=== PATIENT | female | born 2000 | race Caucasian/White ===

== ENCOUNTER 2024-09-16 14:07 | Outpatient (CLI) | payer BC, SELFPAY ==
[2024-09-16 15:16] LABS: Beta HCG Quantitative < 2.39 mIU/ML
--- OUTSIDE RECORDS SUMMARY | 2024-09-16 15:35 | XMS_ITS | Encounter Summary ---
Author Organization [facility] Address [address] [place] [address] Phone Care Team Providers Care Donor Relations Associate Name Role Phone Provider, Outside Primary Care Provider Unavaila ble Reason for Referral * - Closed Specialty Diagnoses / Procedures Referred By Contac t Referred To Contact Diagnoses Close exposure to COVID-19 virus Procedures COVID-19 VIRUS PCR (2019 NOVEL CORONAVIRUS) Gerry Lee MD Phone: tel: fax: Referral ID Status Reason Start Date Expiration Date Visits Re quested Visits Authorized [id number] Closed 12/31/2019 12/30/2020 1 1 Encounter Details Date Type Department Care Team (Late st Contact Info) Description 12/31/2019 Orders Only [facility] [address] [place] [address] Gerry Lee MD [address] [place] [address] Close exposure to COVID-19 virus (Primary Dx) Social History Tobacco Use Types Packs/Day Years Used Date Smoking Tobacco: Never Assessed Comments Unknown Sex and Gender Information Value Date Recorded Sex Assigned at Not on file 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 The [place] FDA has made this test available under an emergency access mechanism called an Emergency Use Authorization (EUA). The EUA is supported by the [place] of Health and Human Service's (HHS's) declaration that circumstances exist to justify the emergency use of in vitro diagnostics (IVDs) for the detection and/or diagnosis of the virus that causes COVID-19. An IVD made available under an EUA has not undergone the same type of review as an FDA-approved or cleared IVD. FDA may issue an EUA when certain criteria are met, which includes that there are no adequate, approved, available alternatives, and based on the totality of scientific evidence available, it is reasonable to believe that this IVD may be effective in the detection of the virus that causes COVID-19. The EUA for this test is in effect for the duration of the COVID-19 declaration justifying emergency use of IVDs, unless terminated or revoked (after which the test may no longer be used). COVID-19 SOURCE Nasal Swab [facility] No [facility] FIRST TEST YES [facility] EMPLOYED IN HEALTHCARE NO [facility] SYMPTOMATIC DEFINED BY CDC NO [facility] HOSPITALIZED NO [facility] ICU NO [facility] IS NO [facility] Comment:[facility], [address] [place] [id number] SWAB OF INTERNAL NOSE / Unknown 12/31/2019 8:00 PM CDT 01/01/2020 8:08 PM CDT Narrative [facility] - 01/02/2020 2:01 PM CDT Called to this provider s office : () Tel: [phone]. [phone] CALL![phone] us Gerry Lee MD [id number] Final Result [facility] [address] [place] [address], documented in this encounter Visit Diagnoses Diagnosis Close exposure to COVID-19 virus- Primary Close exposure to COVID-19 virus documented in this encounter Care Teams Donor Relations Associate Relationship Specialty Start Date End Date Provider, Outside PCP - General 12/10/19 documented as of this encounter
--- OUTSIDE RECORDS SUMMARY | 2024-09-16 15:35 | XMS_ITS | Data Portability ---
Author Organization [facility] [employer], [facility] Address [address] [place] [address] Assessment Encounter Date Assessment Date Assessment LastModified by Organization Details LastModified Time 09/16/2024 09/16/2024 Limited physical exam d/t telehealth, pt speaking in full sentences, alert and oriented X 3. [email or web address] Not available 09/16/2024 16:28:32 Plan of Treatment Reminders Order Date Submit Date Provider Last Modified By Organization Details Last Modified Time Details Appointments Telehealt h 2024 03:15P M Emeli Frausto APN Not available Not available Not available Lab unlisted lab - outreach UA POC 2024 025 [facility], [address] [place] [address] [place], [address], 08/14/2024 10:21:55 CBC w/ diff 2024 025 [facility], [address] [place] [address] [place], [address], 08/14/2024 10:21:54 CMP, serum or plasma 2024 025 [facility] - [facility], [address] [place] [address] [place], [address], 08/14/2024 10:21:56 thyrotrop in, QN, serum or plasma 2024 025 [facility] - [facility], [address] [place] [address] [place], [address], 08/14/2024 10:21:54 magnesium , serum or plasma 2024 025 [facility], [address] [place] [address] [place], [address], 08/14/2024 10:21:56 phosphoru s, serum or plasma 2024 025 [facility] - [facility], [address] [place] [address] [place], [address], 08/14/2024 10:21:54 C reactive protein, QN, serum or plasma 2024 025 [facility], [address] [place] [address] [place], [address], 08/14/2024 10:21:55 cobalamin , QN, serum or plasma 2024 025 [facility], [address] [place] [address] [place], [address], 08/16/2024 18:58:26 THUY (antiucle ar antibodie s) IgG Ab, qual, IA, serum 2024 025 [facility], [address] [place] [address] [place], [address], 08/14/2024 11:44:36 pap, LB + reflex to HR HPV if ASC-U 2023 024 [facility], [address] [place] [address] [place], [address], 12/13/2023 10:13:36 cobalamin , QN, serum or plasma 2023 024 [facility], [address] [place] [address] [place], [address], 09/28/2023 16:51:49 vitamin D, 25-hydrox y, total, serum 2023 024 [facility], [address] [place] [address] [place], [address], 09/28/2023 16:51:49 CMP, serum or plasma 2023 024 [facility], [address] [place] [address] [place], [address], 09/28/2023 16:50:27 CBC w/ diff 2023 024 [facility], [address] [place] [address] [place], [address], 09/28/2023 16:50:26 lipid panel, serum 2023 024 [facility], [address] [place] [address] [place], [address], 09/28/2023 16:50:26 Referral otolaryng ologist referral 2022 023 [facility], [place] [place], [address], 12/08/2022 09:40:43 Procedures None recorded. Surgeries None recorded. Imaging None recorded. Medication Orders None recorded. Patient TargetsNo targets recorded. Patient InstructionsNo instructions recorded. 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 COMME NT: This Pap smear was scree zulema with the clarisa tance of the Holog ic ThinP rep(T M) Imagi ng Syste m and scree zulema by a cytot tee garcia t. SPECI MEN SOURC E: Pap (Refl ex to HPV DNA Genot yping 16,18 when ASC-U S), Cervi sindy CLINI SINDY INFOR MATLIBRADO N: LMP: N/A Cervi covag inal cytol ogy shoul d be consi dered a scree fernando proce dure subje ct to false negat gurjit and false posit gurjit. Resul ts are more relia ble when a satis facto ry sampl e is obtai zulema on a regul ar repet itive basis , and shoul d be inter prete d toget her with past and curre nt clini sindy data. ELECT EMILIANA Sanchez BY: Scree zulema By: Octaviano Terrell, CT (ASCP ) Case Elect rianaradha sanchez 12/12 Not Available Estella Pascal [facility] [address] [place], [address], 12/13/2023 10:13:36 12/07/19 24 12/07/2023 PAP THINP REP RFLX HPV {ASCU S}-GP BR source - Pap - gpbr CERVIC AL PERFO RMED BY: Estella Robertson [facility] r [address] [place] [address] Gold baptiste, . CLIA: [id number] Not Available Estella Pascal [facility] [address] [place], [address], 12/13/2023 10:13:36 08/15/1908/14/2024 OUTRE ACH UA POC UA color Yellow yellow Not Available Estella soliman [facility] - [facility] [address] [place], [address], 08/14/2024 11:44:36 08/15/19 25 08/14/2024 OUTRE ACH UA POC UA appear Clear clear Not Available [facility] Lab [address] [place] [address] [place], [address], 08/14/2024 11:44:36 08/15/19 25 08/14/2024 OUTRE ACH UA POC UA pH 7.5 5.0-8. 0 Not Available [facility] [address] [place] [address] [place], [address], 08/14/2024 11:44:36 08/15/19 25 08/14/2024 OUTRE ACH UA POC UA spec grav 1.020 1.005- 1.030 Not Available [facility] - Lab [address] [place] [address] [place], [address], 08/14/2024 11:44:36 08/15/19 25 08/14/2024 OUTRE ACH UA POC UA glucose Negati ve negati ve Not Available [facility] - Lab [address] [place] [address] [place], [address], 08/14/2024 11:44:36 08/15/19 25 08/14/2024 OUTRE ACH UA POC UA ketones Negati ve negati ve Not Available [facility] [address] [place] [address] [place], [address], 08/14/2024 11:44:36 08/15/19 25 08/14/2024 OUTRE ACH UA POC UA blood Negati ve negati ve Not Available [facility] [address] [place] [address] [place], [address], 08/14/2024 11:44:36 08/15/19 25 08/14/2024 OUTRE ACH UA POC UA protein Negati ve negati ve Not Available [facility] [address] [place] [address] [place], [address], 08/14/2024 11:44:36 08/15/19 25 08/14/2024 OUTRE ACH UA POC UA bili Negati ve negati ve Not Available [facility] [address] [place] [address] [place], [address], 08/14/2024 11:44:36 08/15/19 25 08/14/2024 OUTRE ACH UA POC UA urobilinogen 0.2 Not Available [facility] [address] [place] [address] [place], [address], 08/14/2024 11:44:36 08/15/19 25 08/14/2024 OUTRE ACH UA POC UA nitrite Negati ve negati ve Not Available [facility] [address] [place] [address] [place], [address], 08/14/2024 11:44:36 08/15/19 25 08/14/2024 OUTRE ACH UA POC UA leuk est Negati ve negati ve Not Available [facility] [address] [place] [address] [place], [address], 08/14/2024 11:44:36 08/15/19 25 08/14/2024 OUTRE ACH UA POC UA perform location poct TRINIT Y Not Available [address] [place], [address], 08/14/2024 11:44:36 08/15/19 25 08/14/2024 CBC WDIF WBC 4.5 K/mcL 4.0-11 .7 Not Available [facility] [address] [place] [address] [place], [address], 08/16/2024 18:58:26 08/15/19 25 08/14/2024 CBC WDIF RBC 4.33 x10*6 /mcL 3.80-5 .41 Not Available [address] [place], [address], 08/16/2024 18:58:26 08/15/19 25 08/14/2024 CBC WDIF HGB 12.6 g/dL 11.3-1 5.2 Not Available [facility] [address] [place] [address] [place], [address], 08/16/2024 18:58:26 08/15/19 25 08/14/2024 CBC WDIF HCT 37.6 % 33.2-4 5.3 Not Available [facility] [address] [place] [address] [place], [address], 08/16/2024 18:58:26 08/15/19 25 08/14/2024 CBC WDIF MCV 86.9 fL 79.5-9 8.1 Not Available [facility] [address] [place] [address] [place], [address], 08/16/2024 18:58:26 08/15/19 25 08/14/2024 CBC WDIF MCH 29.0 pg 27.0-3 4.2 Not Available [facility] [address] [place] [address] [place], [address], 08/16/2024 18:58:26 08/15/19 25 08/14/2024 CBC WDIF MCHC 33.4 g/dL 31.8-3 5.3 Not Available [facility] [address] [place] [address] [place], [address], 08/16/2024 18:58:26 08/15/19 25 08/14/2024 CBC WDIF RDW 12.6 % 12.0-1 6.4 Not Available [facility] [address] [place] [address] [place], [address], 08/16/2024 18:58:26 08/15/19 25 08/14/2024 CBC WDIF platelets 231 K/mcL 149-39 3 Not Available [facility] [address] [place] [address] [place], [address], 08/16/2024 18:58:26 08/15/19 25 08/14/2024 CBC WDIF MPV 8.6 fL 7.0-11 .0 Not Available [facility] [address] [place] [address] [place], [address], 08/16/2024 18:58:26 08/15/19 25 08/14/2024 CBC WDIF neutro auto 53.1 % 45.3-7 9.0 Not Available [facility] [address] [place] [address] [place], [address], 08/16/2024 18:58:26 08/15/19 25 08/14/2024 CBC WDIF lymph auto 34.8 % 11.8-4 5.9 Not Available [address] [place], [address], 08/16/2024 18:58:26 08/15/19 25 08/14/2024 CBC WDIF mono auto 7.0 % 4.4-12 .0 Not Available [address] [place], [address], 08/16/2024 18:58:26 08/15/19 25 08/14/2024 CBC WDIF eosinophil auto 4.2 % 0.0-6. 3 Not Available [address] [place], [address], 08/16/2024 18:58:26 08/15/19 25 08/14/2024 CBC WDIF basophil auto 0.9 % 0.2-1. 6 Not Available [address] [place], [address], 08/16/2024 18:58:26 08/15/19 25 08/14/2024 CBC WDIF neutro absolute 2.4 x10*3 /mcL 2.4-8. 4 Not Available [facility] [address] [facility] [place], [address], 08/16/2024 18:58:26 08/15/19 25 08/14/2024 CBC WDIF lymph absolute 1.6 x10*3 /mcL 0.8-3. 7 Not Available [facility] [address] [facility] [place], [address], 08/16/2024 18:58:26 08/15/19 25 08/14/2024 CBC WDIF mono absolute 0.3 x10*3 /mcL 0.3-1. 1 Not Available [facility] [address] [place] [address] [place], [address], 08/16/2024 18:58:26 08/15/19 25 08/14/2024 CBC WDIF eos absolute 0.2 x10*3 /mcL 0.0-0. 5 PERFO RMED BY: [facility] [address] [place] [address] Gold Florian r, DO . CLIA: [id number] Not Available [facility] [address] [place] [address] [place], [address], 08/16/2024 18:58:26 08/15/19 25 08/14/2024 CRP CRP <0.1 mg/dL 0.0-1. 0 PERFO RMED BY: [facility] [address] [place] [address] Gold Florian r, DO . CLIA: [id number] Not Available [facility] [address] [place] [address] [place], [address], 08/16/2024 18:58:27 08/15/19 25 08/14/2024 TSH TSH 0.71 mciu/ mL 0.45-5 .33 PERFO RMED BY: [facility] [address] [facility] [address] [place] [address] Gold Florian r, DO . CLIA: [id number] Not Available [facility] [address] [place] [address] [place], [address], 08/16/2024 18:58:27 08/15/19 25 08/14/2024 VITAM IN B12 vitamin B12 lvl 321 pg/mL 180-91 4 Vitam in B12 Inter preta tion: Emily l Range : 180-9 14 pg/mL Indet ermin ate: 140-1 80 pg/mL Defic ient: <140 pg/mL PERFO RMED BY: Estella peterson [facility] [address] [facility] [address] [place] [address] Gold Florian r, DO . CLIA: [id number] Not Available [facility] [address] [place] [address] [place], [address], 08/16/2024 18:58:28 08/15/19 25 08/14/2024 CMP glucose lvl 83 mg/dL 74-109 ADA risk strat ifica tion for diabe rehana <100 mg/dL = Emily l 100-1 25 mg/dL = Incre ased risk for futur e diabe rehana >=126 mg/dL = Diabe rehana, if on more than one testi ng occas ion Not Available [facility] [address] [place] [address] [place], [address], 08/16/2024 18:58:28 08/15/19 25 08/14/2024 CMP BUN 16 mg/dL 7-25 Not Available [facility] [address] [place] [address] [place], [address], 08/16/2024 18:58:28 08/15/19 25 08/14/2024 CMP creatinine lvl 0.88 mg/dL 0.60-1 .20 Not Available [facility] [address] [place] [address] [place], [address], 08/16/2024 18:58:28 08/15/19 25 08/14/2024 CMP eGFR CKD-epi >90 mL/mi n/1.7 3_m2 >=90 The CKD-E PI equat ion is valid ated in indiv idual s 18 years of age and older . It is less accur ate in patie nts with extre mes of muscl e mass, restr ictio n of dieta ry prote in, inges tion of creat ine, extra -aniya l metab olism of creat inine , or treat ment with medic ation s that affec t renal tubul ar creat inine secre tion. GFR Categ ories in Chron ic Kidne y Disea se (CKD) GFR GFR (mL/m in/1. 73 Categ ory: squar e meter s): Inter preta tion: G1 90 or great er Emily l or high* G2 60-89 Mild decre ase* G3a 45-59 Mild to moder ate decre ase G3b 30-44 Moder ate to sever e decre ase G4 15-29 Sever e decre ase G5 14 or less Kidabraham y failu re *In the absen ce of evide nce of kidne y damag e, neith er GFR categ ory G1 nor G2 fulfi ll the crite kimberly for CKD (Emily stern Int Suppl 2013; 3:1-1 50) Not Available [facility] [address] [place] [address] [place], [address], 08/16/2024 18:58:28 08/15/19 25 08/14/2024 CMP calcium lvl 9.2 mg/dL 8.6-10 .3 Not Available [facility] [address] [place] [address] [place], [address], 08/16/2024 18:58:28 08/15/19 25 08/14/2024 CMP sodium lvl 139 mmol/ L 136-14 5 Not Available [facility] [address] [place] [address] [place], [address], 08/16/2024 18:58:28 08/15/19 25 08/14/2024 CMP potassium lvl 4.3 mmol/ L 3.5-5. 1 Not Available [facility] [address] [place] [address] [place], [address], 08/16/2024 18:58:28 08/15/19 25 08/14/2024 CMP chloride lvl 107 mmol/ L 98-107 Not Available [facility] [address] [place] [address] [place], [address], 08/16/2024 18:58:28 08/15/19 25 08/14/2024 CMP CO2 27 mmol/ L 21-31 Not Available [facility] [address] [place] [address] [place], [address], 08/16/2024 18:58:28 08/15/19 25 08/14/2024 CMP anion gap 5.0 mmol/ L <=16.0 Not Available [facility] [address] [place] [address] [place], [address], 08/16/2024 18:58:28 08/15/19 25 08/14/2024 CMP alk phos 36 unit/ L 34-104 Not Available [facility] [address] [place] [address] [place], [address], 08/16/2024 18:58:28 08/15/19 25 08/14/2024 CMP bilirubin total 0.7 mg/dL 0.3-1. 0 Not Available [facility] [address] [place] [address] [place], [address], 08/16/2024 18:58:28 08/15/19 25 08/14/2024 CMP albumin lvl 4.5 g/dL 3.5-5. 2 Not Available [facility] [address] [place] [address] [place], [address], 08/16/2024 18:58:28 08/15/19 25 08/14/2024 CMP protein total 6.5 g/dL 6.4-8. 9 Not Available [facility] [address] [place] [address] [place], [address], 08/16/2024 18:58:28 08/15/19 25 08/14/2024 CMP albumin/glob ulin ratio 2.3 1.1-2. 5 Not Available [facility] [address] [place] [address] [place], [address], 08/16/2024 18:58:28 08/15/19 25 08/14/2024 CMP ALT 15 unit/ L 7-52 Not Available [facility] [address] [place] [address] [place], [address], 08/16/2024 18:58:28 08/15/19 25 08/14/2024 CMP AST 13 unit/ L 13-39 PERFO RMED BY: Estella Gwyn Robertson [facility] [address] [employer] [address] DO Maximino Gilmore CLIA: [id number] Not Available [facility] [address] [place] [address] [place], [address], 08/16/2024 18:58:28 08/15/19 25 08/14/2024 MG LVL magnesium lvl 1.9 mg/dL 1.6-2. 4 PERFO RMED BY: Estella Pascal [facility] [address] [place] [address] DO Maximino Gilmore CLIA: [id number] Not Available [facility] [address] [place] [address] [place], [address], 08/16/2024 18:58:29 08/15/19 25 08/14/2024 PHOS phosphorus lvl 2.6 mg/dL 2.5-5. 0 PERFO RMED BY: [facility] [address] [facility] [place] [address] Gold baptiste DO . CLIA: [id number] Not Available Estella Pascal [facility] [address] [place], [address], 08/16/2024 18:58:29 08/15/19 25 08/14/2024 THUY SCREE N W/REF L AB CASCA DE-AR UP THUY linda rflx See Below Chart Name Resul ts Units Flag Ref Range Anti- Nucle ar Ab (THUY) , IgG None Detec zaid None Detec zaid If suspi cion of conne ctive tissu e disea se is stron g and THUY EIA is negat zahraa, consi cirilo testi ng for THUY by IFA (3000 601). No antib odies to Anti- Nucle ar Antib odies (THUY) detec zaid. The Extra ctabl e Nucle ar Antig en Antib odies (SAFETY AND HEALTH MANAGER, Campbell , SSA 52, SSA 60, Scler oderm a, Hanna-1 and SSB) and Doubl e Stran ded DNA (dsDN A) Antib dillan, IgG will not be perfo rmed. INTER PRETI VE INFOR MATIO N: Anti- Nucle ar Antib odies (THUY) , IgG by LINDA Antin uclea r Antib odies (THUY) , IgG by LINDA : THUY speci mens are scree zulema using enzym e-omero ked immun osorb ent assay (RADHA A) metho dolog y. All LINDA resul ts repor zaid as Detec zaid are furth er teste d by indir ect fluor escen t assay (IFA) using HEp-2 subst rate with an IgG-s pecif ic conju gate. The THUY LINDA scree n is desig zulema to detec t antib odies again st dsDNA , histo darline, SS-A (Ro), SS-B (La), Campbell , Campbell /SAFETY AND HEALTH MANAGER, Scl-7 0, Hanna-1, centr omeri c prote ins, other antig ens extra cted from the HEp-2 cell nucle us. THUY LINDA assay s have been repor zaid to have lower sensi tivit ies than THUY IFA for syste mary ellen autoi mmune rheum atic disea ses (SARD ). Negat zahraa resul ts do not neces saril y rule out SARD. Perfo rmed By: [facility] [address] [place] [address] Labor atory Direc tor: Nirav barnes MD, PhD MALLY Howell r: [id number] Not Available Estella Pascal [facility] [address], [place], [address], 08/16/2024 18:58:29 08/15/19 25 08/06/2024 rhyth m strip , EKG* No observ ation record ed. [email or web address] Not Available 08/14 16:49:59 08/15/19 25 elect tu leahy am No observ ation record ed. [email or web address] Not Available 0 08/15/2024 10:34:15 Result Notes None recorded. 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 Procedures Surgical History None recorded. Imaging Results Imaging Date Name Status LastModified by Organization Details LastModified Time 08/06/2024 rhythm strip, EKG* completed [email or web address] Inform ation not available 08/14/2024 16:49:59 08/14/2024 electrocardiogram completed [email or web address] Inf ormation not available 08/15/2024 10:34:15 Procedure Notes None recorded. Medical Equipment None Reported. Allergies No known drug allergies Medications Name Sig Start Date Stop Date Status Note LastModified by Organization Details LastModified Time Ivermectin 12mg (Compounded ) Take 1 capsule twice a day for 5 days 12/06 completed Not Available Not Available Not Available prednisone 10 mg tablet TAKE 4 TAB BY MOUTH X3 DAYS, THEN 3 DAILY X3 DAYS, THEN 2 DAILY X3 DAYS, THEN 1 DAILY X3 DAYS 09/28 completed Not Available Not Available Not Available azithromyci n 250 mg tablet TAKE 2 TABLETS BY MOUTH ON DAY 1, THEN TAKE 1 TABLET DAILY ON DAYS 2-5 09/28 completed Not Available Not Available Not Available fluconazole 150 mg tablet TAKE 1 TABLET BY MOUTH ONCE NOW *NOT COVERED* 11/03 completed Not Available Not Available Not Available triamcinolo ne acetonide 0.1 % topical cream APPLY A THIN LAYER TO THE AFFECTED AREA(S) BY TOPICAL ROUTE 2 TIMES PER DAY active Not Available Not Available No t Available spironolact one 25 mg tablet TAKE 1 TABLET BY MOUTH DAILY FOR 2 WEEKS, IF TOLERATIN G WELL TAKE 2 TABLETS DAILY(AT THE SAME TIME.) 11/03 completed Not Available Not Available Not Available fluorometho lone 0.1 % eye drops,suspe nsion INSTILL 1 DROP INTO RIGHT EYE 3 TIMES DAILY. active Not Available Not Available No t Available amoxicillin 875 mg-potassiu m clavulanate 125 mg tablet Take 1 tablet by mouth every 12 (twelve) hours for 10 days 12/06 completed Not Available Not Available Not Available clindamycin 1 % lotion Apply pea size amount to clean, dry face once daily at bedtime. 12/06 completed Not Available Not Available Not Available Retin-A Micro Pump 0.08 % topical gel Apply once daily to clean face before bed. active Not Available Not Available No t Available Vitals Date Recorded Body height Body mass index (BMI) Body weight Body temperature Heart rate Respiratory rate Oxygen saturation Oxygen saturation in Arterial blood by Pulse oximetry Systolic blood pressure Diastolic blood pressure Provider Name and Address Organization Details Last Updated DateTime 3 175.26 cm 20.5 kg/m2 64823.6 2 g 98.4 [degF] 74 /min 17 /min 100 % 100 % 99 mm[Hg] 63 mm[Hg] Jenny Mace [facility] and [facility] 3 12:50:47 Date Recorded Body height Body mass index (BMI) Body weight Heart rate Oxygen saturation Oxygen saturation in Arterial blood by Pulse oximetry Respiratory rate Body temperature Systolic blood pressure Diastolic blood pressure Provider Name and Address Organization Details Last Updated DateTime 4 175.26 cm 21.1 kg/m2 66888.2 7 g 80 /min 100 % 100 % 17 /min 98.9 [degF] 111 mm[Hg] 77 mm[Hg] Jenny Mace [facility] 4 15:52:43 Date Recorded Body height Body mass index (BMI) Body weight Body temperature Oxygen saturation Oxygen saturation in Arterial blood by Pulse oximetry Respiratory rate Heart rate Systolic blood pressure Diastolic blood pressure Provider Name and Address Organization Details Last Updated DateTime 4 175.26 cm 20.7 kg/m2 99150.9 8 g 98 [degF] 100 % 100 % 17 /min 74 /min 105 mm[Hg] 70 mm[Hg] Beba Miguel [facility] 4 09:34:38 Date Recorded Body height Body mass index (BMI) Body weight Body temperature Respiratory rate Heart rate Oxygen saturation Oxygen saturation in Arterial blood by Pulse oximetry Systolic blood pressure Diastolic blood pressure Provider Name and Address Organization Details Last Updated DateTime 5 175.26 cm 20.6 kg/m2 75903.4 4 g 98.9 [degF] 17 /min 83 /min 99 % 99 % 113 mm[Hg] 77 mm[Hg] Jenny Mace [facility] 5 09:35:21 Social History Question Answer Notes LastModified by [email or web address] ion Details LastModified Time Tobacco Smoking Status Never [facility]21 10:55:32 What Is Your Level Of Alcohol Consumption? None [email or web address] Information not available 09/28/2021 What Is Your Level Of Caffeine Consumption? Occasional [email or web address] Information not available 09/28/2021 Do You Or Have You Ever Used Any Other Forms Of Tobacco Or Nicotine? No Information not available 09/28/2021 Sex: Unknown Functional Status None recorded. Mental Status None recorded. Family History Relationship Description Onset Age of this Age Resolved Age Notes LastModified by Organization Details LastModified Time Paternal Grandmother Dementia 77 [email or web address] Not available 03/2022 10:53:39 Maternal Grandmother Diabetes mellitus 84 Not available 2021 10:54:25 Medical History Condition Response Anxiety Disorder N Allergies/Hayfever N Bedwetting N Arthritis N Auditory Hallucinations N Blood Diseases N Blood Transfusion N AIDS/HIV N Amnesia N Abuse/Domestic Violence N Asthma N Defects or Inherited Disease N ADD/ADHD N Anemia N Bladder or Kidney Problems N Anesthesia Complications N Brain Injury N Autism Spectrum Disorder (ASD) N Gynecological History Statement/Question Response Flow Moderate Date of LMP 09/07/2024 Frequency of Cycle (Q days) 30 Menses Monthly Y HPV Vaccine N Duration of Flow (days) 6 Current Control Method N/A Obstetrics History GPAL:G 0 P 0 0 0 0 Immunizations Vaccine Type Date Status Note Provider Nam e and Address Organization Details Recorded Time DTaP 3 completed Callie Gage APN [address] [place] [address], [phone], [facility] 09/28/2021 11:35:39 pneumococcal, unspecified formulation 3 completed Callie Gage APN [address] [place] [address], [phone], [facility] 09/28/2021 11:35:39 DTaP 2 completed Callie Gage APN [address] [place] [address], [phone], [facility] 09/28/2021 11:35:39 MMR 7 completed Callie Gage APN [address] [place] [address], [phone], [facility] 09/28/2021 11:35:39 Hib-Hep B 2 completed Callie Gage APN [address] [place] [address], [phone], [facility] 09/28/2021 11:35:39 IPV 2 completed Callie Gage APN [address] [place] [address], [phone], [facility] 09/28/2021 11:35:39 IPV 2 completed Callie Gage APN [address] [place] [address], [phone], [facility] 09/28/2021 11:35:39 Tdap 3 completed Callie Gage APN [address] [place] [address], [phone], [facility] 09/28/2021 11:35:39 DTaP 7 completed JASMIN EstesN [address] [place] [address], [phone], [facility] 09/28/2021 11:35:39 IPV 7 completed Callie Gage [employer]ED CONTROL INSPECTOR [address] [place] [address], [phone], [facility] 09/28/2021 11:35:39 IPV 3 completed Callie Gage [employer]ED CONTR[employer] INSPECT[employer] [address] [place] [address], [phone], [facility] 09/28/2021 11:35:39 Hep A, ped/adol, 2 dose 9 completed Callie Tubbsrobert [employer] INS[employer]OR [address] [place] [address], [phone], [facility] 09/28/2021 11:35:39 DTaP 2 completed Callie Gage [employer]ED CONTROL INSPECTOR [address] [place] [address], [phone], [facility] 09/28/2021 11:35:39 DTaP 2 completed Callie Tubbsrobert WEED CONTROL INSPECTOR [address] [place] [address], [phone], [facility] 09/28/2021 11:35:39 Hib-Hep B 3 completed Callie Tubbsrobert [employer]ED CONTR[employer] INSPECTOR [address] [place] [address], [phone], [facility] 09/28/2021 11:35:39 pneumococcal, unspecified formulation 2 completed Callie Avninegin [employer] CONTR[employer] INSPECTOR [address] [place]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
--- OUTSIDE RECORDS SUMMARY | 2024-09-16 15:35 | XMS_ITS | Encounter Summary ---
Author Organization [facility] Address [address] [place] [address] Phone Care Team Providers Care Sea Kayaking Guide Name Role Phone Provider, Outside Primary Care Provider Unavaila ble Encounter Details Date Type Department Care Team (Late st Contact Info) Description 09/25/2023 Scanned Document Epicenter Conveyor Feeder Provider, Interface Default Social History Tobacco Use Types Packs/Day Years Used Date Smoking Tobacco: Never Passive Smoke Exposure: Never Smokeless Tobacco: Never Alcohol Use Standard Drinks/Week Comments Yes 0 (1 standard drink = 0.6 oz pur e alcohol) social Comments No Sex and Gender Information Value Date Recorded Sex Assigned at Not on file 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
--- OUTSIDE RECORDS SUMMARY | 2024-09-16 15:35 | XMS_ITS | Data Portability ---
Author Organization [facility], [address] [facility] ([place]) Address [address] [place] [address] Care Team Providers Care Real Estate Rental Agent Name Role Phone LUL MIR Primary Care Provider Assessment Encounter Date Assessment Date Assessment LastModified by Organization Details LastModified Time 05/05/2024 05/05/2024 Discussed the importance of using sunscreen SPF 30 as well as wearing a wide brimmed hat. Monitor for any new or changing moles or skin lesions. Recommended yearly full-body skin checks. Discussed ABCDEs of melanoma and gave the patient a skin cancer handout. Discussed pathophysiology . Patient s acne is mild. Will continue clindamycin and tretinoin. Keratosis pilaris: Discussed the etiology and treatment options with the patient and the patient's parents. Explained that this is a benign type of eczema. It can be, chronic skin condition. Treatment includes [id number] r AmLactin or Lac-Hydrin. Patient can use these once daily. Patient also needs to exfoliate the skin as well as keep it moist with gentle moisturizers. Recommended Cetaphil and severity and gave the patient samples of this. Eczema: Discussed the etiology and treatment options with the patient. Discussed safe products and gave the patient a safe products handout. Discussed gentle cleansers and moisturizers and stressed the importance of keeping the patient's skin moist. Patient is going to follow Eczema action plan. Discussed the risks of long-term steroid use including skin atrophy, hypopigmentatio n, and stretch haley. Also discussed systemic absorption of steroids. [email or web address] Not available 05/05/2024 14:31:49 Plan of Treatment Reminders Order Date Submit Date Provider Last Modified By Organization Details Last Modified Time Details Appointments Establish ed Patient 15MaximinoEST 2024 09:45A M Nidia Liz Not available Not available Not available Lab None recorded. Referral None recorded. Procedures None recorded. Surgeries None recorded. Imaging None recorded. Medication Orders None recorded. Patient TargetsNo targets recorded. Patient InstructionsNo instructions recorded. Reason for Referral None Reported. Problems Name Problem SNOMED Code Status Onset Date Resolution Date Notes Provider Name and Address Organization Details Recorded Time Acne vulgaris 24839410 Active 2023 Nidia Liz PA-C [address] [place] [address], [phone], [facility] 4 08:07:32 Solar degeneration 92580208 Active 2023 Nidia Liz PA-C [address] [place] [address], [phone], [facility] 4 08:07:44 Keratosis pilaris 2310140 Active 2023 Nidia Liz PA-C [address] [place] [address], [address], [facility] 4 08:07:50 Chilblains 50223003 Active 2023 Nidia Liz PA-C [address] [place] [address], [phone], [facility] 4 14:20:19 Atopic dermatitis 30864550 Active 2023 Nidia Liz PA-C [address] [place] [address], [address], [facility] 4 14:20:34 Eczema 54150075 Active 2023 Oumou Ba [facility] 4 14:24:12 Problem Notes None recorded. Medical Equipment None Reported. Allergies No known drug allergies Medications Name Sig Start Date Stop Date Status Note LastModified by Organization Details LastModified Time triamcinolone acetonide 0.1 % topical cream APPLY A THIN LAYER TO THE AFFECTED AREA(S) arms, neck BY TOPICAL ROUTE 2 TIMES PER DAYbid x 2 weeks 1 week off repea 2023 active Not Available Not Available Not Avai lable fluorometholon e 0.1 % eye drops,suspensi on INSTILL 1 DROP INTO RIGHT EYE 3 TIMES DAILY. active Not Available Not Available No t Available amoxicillin 875 mg-potassium clavulanate 125 mg tablet Take 1 tablet by mouth every 12 (twelve) hours for 10 days active Not Available Not Available No t Available clindamycin 1 % lotion Apply pea size amount to clean, dry face once daily at bedtime. 2023 active Not Available Not Available Not Avai lable Vitals None Recorded Social History None recorded. Functional Status None recorded. Mental Status None recorded. Family History Nothing Reported. Medical History No medical history recorded. Gynecological HistoryNo gynecological history recorded. Obstetrics History GPAL:G 0 P 0 0 0 0 Past Encounters Encounter ID Performer Location Encounter Start Date Encounter Closed Date Diagnosis/Indication Diagnosis SNOMED-CT Code Diagnosis ICD10 Code Diagnosis Note [id number] Nidia Liz PA-C [facility] ([place]) [address] [place] [phone] 05/05/2024 13:48:29 05/05/2024 14:24:18 Acne vulgaris 14170030 L70.0 Solar degeneration 53976 006 L57.8 Keratosis pilaris 594492 5 L85.8 Chilblains 62048163 T69. 1XXA Atopic dermatitis 232037 01 L20.9 Health Concerns Section Related Observation LastModified by Organization Detai ls LastModified Time None Recorded Concern Status LastModified by Organization Details LastModified Time None Recorded Advance Directives Directive None Recorded Payers Encounter Date Sequence Insurance Name Policy Number Policy Buchanan Covered Member ID Buchanan Member ID Guarantor Name 05/05/2024 SELF PAY OUT OF NETWORK MARLENY Bellamy Notes Date Note Type Note Provider Name and Address Organization Details Recorded Time 05/05/2024 text/html Last OV 10/2022. Recheck of acne treated with clindamycin and Retin-A. Has tried spironolactone. rash arms bilat on forearms and in bra area neck area. since november. spreading. hydro presc only thing that helps. also re check acne clinidamycin still working and happy with Rein-A also. 3rd toe swollen and red. rubbing in shoe. feet are always cold. brother has poor circulation to fingers and toes Nidia Liz PA-C [address] [place] [address], [phone], [place] [facility] 05/05/2024 14:32:03 OBGyn Episode No OBEpisode recorded.
--- OUTSIDE RECORDS SUMMARY | 2024-09-16 15:35 | XMS_ITS | Clinical Summary ---
Author Organization [facility] Address [address] [place] [address] Phone Care Team Providers Care Front Of House Manager Name Role Phone Provider, Outside Primary Care Provider Unavaila ble Allergies No known active allergies Medications clindamycin (CLINDAMAX) 1 % topical lotion Apply 1 Units topically to affected area every day as needed 2 Active fluticasone propionate (FLONASE ALLERGY RELIEF OTC) 50 mcg/actuation nasal sprayIndication s:Acute non-recurrent maxillary sinusitis 2 sprays by Each Nostril route 2 (two) times daily 16 g 2 Active Active Problems No known active problems Immunizations Immunization Administration Dates Next Due DTaP-Acellular (Infanrix) 10/26/2006,05/2002,2001,2001,05/21 HEP B/HIB (Comvax) 07/08/2002,2001, 002 Hepatitis A - Pediatric 05/27/2019,10/02/2018 Btcxwqd-Wclze-Bptymmk - MMR 10/26/2006, 3 Meningococcal (MENVEO) 01/10/2019 Pneumococcal (Unspecified) 08/07/2002,2001 ,2001,2001 Polio Virus (IPOL) 10/26/2006,07/08/2002, 002,2001 T-dap (BOOSTRIX) 09/24/2023,12/24/2012 Family History Medical History Relation Name Comments Lung Cancer Maternal Grandfather Lung Cancer Maternal Grandmother Dementia Paternal Grandmother Relation Name Status Comments Maternal Grandfather Maternal Grandmother Paternal Grandmother Social History Tobacco Use Types Packs/Day Years Used Date Smoking Tobacco: Never Passive Smoke Exposure: Never Smokeless Tobacco: Never Tobacco Cessation:Counseling Given: Not Answered Alcohol Use Standard Drinks/Week Comments Yes 0 (1 standard drink = 0.6 oz pur e alcohol) social Comments No Sex and Gender Information Value Date Recorded Sex Assigned at Not on file 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 Gender Identity Not on file Sexual Orientation Not on file Last Filed Vital Signs Vital Sign Reading Time Taken Comments Blood Pressure 117/68 09/24/2023 10:46 AM CDT Pulse 84 09/24/2023 10:46 AM CDT Temperature 37.3 C (99.1 F) 09/24/2023 10:46 AM CDT Respiratory Rate 18 05/06/2022 3:05 PM ROUGH AND TRUEING MACHINE OPERATOR Oxygen Saturation 97% 09/24/2023 10: 46 AM CDT Inhaled Oxygen Concentration - - Weight 64.8 kg (142 lb 13.7 oz) 024 10:46 AM CDT Height 175.3 cm (5' 9 ) 09/24/2023 10:4 6 AM CDT Body Mass Index 21.1 09/24/2023 10:46 AM CDT Plan of Treatment Health Maintenance Due Date Last Done Comments Depression Screening 2013 Varicella Vaccines (1 of 2 - 13+ 2-dose series) 2014 Chlamydia Screening 2016 HPV Vaccines (1 - 3-dose series) 2016 Meningococcal B Vaccine (1 of 2 - Standard) 2017 Pap Smear 2022 COVID-19 Vaccine ( season) 2024 Influenza Vaccine (Season Ended) 2025 DTaP/Tdap/Td Vaccines (8 - Td or Tdap) 09/23/2033 09/24/2023, 12/24/2012, 10/26/2006, Additional history exists HIB Vaccines Completed 07/08/2002, 11/2001, 2001 Hepatitis B Vaccines Completed 07/08/2002, 2001, 2001 Pneumococcal Vaccines Aged Out 08/07/2002 , 2001, 2001, Additional history exists No longer eligible based on patient's age to complete this topic IPV Vaccines Completed 10/26/2006, 06/21, 2001, Additional history exists MMR Vaccines Completed 10/26/2006, 07/08/2002 Meningococcal Vaccine (ACWY) Completed 01/10/2019 Hepatitis A Vaccines Completed 05/27/2019, 10/03/19 19 Rotavirus Vaccines Aged Out No longer eligible based on patient's age to complete this topic Insurance [employer] from[employer] [facility] Commercial (POS, PPO, etc) Address: [place] [id number] [place] [id number] [facility] Cross [employer] Commercial (POS, PPO, etc) Address: [facility] [id number] [place] [address] Care Teams Front Of House Manager Relationship Specialty Start Date End Date Provider, Outside PCP - General 12/10/19
--- OUTSIDE RECORDS SUMMARY | 2024-09-16 15:35 | XMS_ITS | Continuity of Care Document ---
Author Organization [facility] [employer] Main Office Address [address] [place] [phone] Assessment Encounter Date Assessment Date Assessment LastModified by Organization Details LastModified Time 09/16/2024 09/16/2024 Limited physical exam d/t telehealth, pt speaking in full sentences, alert and oriented X 3. [email or web address] Not available 09/16/2024 16:28:32 Plan of Treatment Reminders Order Date Submit Date Provider Last Modified By Organization Details Last Modified Time Details Appointments Telehealt h 2024 03:15P Brenda Frausto APN Not available Not available Not available Lab None recorded. Referral None recorded. Procedures None recorded. Surgeries None recorded. Imaging None recorded. Medication Orders None recorded. Patient TargetsNo targets recorded. Patient InstructionsNo instructions recorded. Reason for Referral None Reported. Problems Name Problem SNOMED Code Status Onset Date Resolution Date Notes Provider Name and Address Organization Details Recorded Time Seizure [id number] Active 022 Beba Lamont murillo, [facility] [employer] [facility] 09/27/2021 08:56:28 Notes:Heterozygous MTFHR Problem Notes None recorded. Medical Equipment None [...] Available Not Available No t Available Vitals None Recorded Social History Question Answer Notes LastModified by Organizat ion Details LastModified Time Tobacco Smoking Status Never Smoker Ruy Posada [facility] 09/28/2021 10:55:32 What Is Your Level Of Alcohol Consumption? None [email or web address] Information not available 09/28/2021 What Is Your Level Of Caffeine Consumption? Occasional [email or web address] Information not available 09/28/2021 Do You Or Have You Ever Used Any Other Forms Of Tobacco Or Nicotine? No [email or web address] Information not available 09/28/2021 Sex: Unknown Functional Status None recorded. Mental Status None recorded. Family History Relationship Description Onset Age of this Age Resolved Age Notes LastModified by Organization Details LastModified Time Paternal Grandmother Dementia 77 [email or web address] Not available 03/2022 10:53:39 Maternal Grandmother Diabetes mellitus 84 [email or web address] Not available 2021 10:54:25 Medical History Condition Response Allergies/Hayfever N Anxiety Disorder N Bedwetting N Arthritis N Blood Diseases N Auditory Hallucinations N Blood Transfusion N AIDS/HIV N Amnesia N Abuse/Domestic Violence N Asthma N Defects or Inherited Disease N ADD/ADHD N Anemia N Bladder or Kidney Problems N Brain Injury N Anesthesia Complications N Autism Spectrum Disorder (ASD) N Gynecological [...] Organization Details Recorded Time DTaP 3 completed Calile Gage APN [address] [place] [address], [phone], [facility] 09/28/2021 11:35:39 pneumococcal, unspecified formulation 3 completed Callie Gage APN [address] [place] [address], [phone], [facility] 09/28/2021 11:35:39 DTaP 2 completed Callie Gage APN [address] [place] [address], [phone], [facility] 09/28/2021 11:35:39 MMR 7 completed Callie Gage APN [address] [place] [address], [phone], [facility] 09/28/2021 11:35:39 Hib-Hep B 2 completed Callie Gage APN [address] [place] [address], [phone], [facility] 09/28/2021 11:35:39 IPV 2 completed Callie Gage APN [address] [place] [address], [phone], [facility] 09/28/2021 11:35:39 IPV 2 completed Callie Gage APN [address] [place] [address], [phone], [facility] 09/28/2021 11:35:39 Tdap 3 completed Callie Hollymeyer, DRAPERY WORKER [address] [facility], [place], [phone], [facility] 09/28/2021 11:35:39 DTaP 7 completed Callie Hollymerobert, DRAPERY WORKER [address] [place] [address], [phone], [facility] 09/28/2021 11:35:39 IPV 7 completed Callie Hollymeyer, DRAPERY WORKER [address] [place] [address], [place], [phone], [facility] 09/28/2021 11:35:39 IPV 3 completed Callie Hollymeyer, DRAPERY WORKER [address] [place] [address], [phone], [facility] 09/28/2021 11:35:39 Hep A, ped/adol, 2 dose 9 completed Callie Gage, DRAPERY WORKER [address] [place] [address], [phone], [facility] 09/28/2021 11:35:39 DTaP 2 completed Callie Gage, DRAPERY WORKER [address] [place] [address], [phone], [facility] 09/28/2021 11:35:39 DTaP 2 completed Callie Gage, DRAPERY WORKER [address] [place] [address], [phone], [facility] 09/28/2021 11:35:39 Hib-Hep B 3 completed Callie Hollymeyer, DRAPERY WORKER [address] [place] [address], [phone], [facility] 09/28/2021 11:35:39 pneumococcal, unspecified formulation 2 completed Callie Hollymeyer, DRAPERY WORKER [address] [place] [address], [phone], [facility] 09/28/2021 11:35:39 Hep A, ped/adol, 2 dose 0 completed Callie Gage APN [address] [place] [address], [phone], [facility] 09/28/2021 11:35:39 MMR 3 completed Callie Gage APN [address] [place] [address], [phone], [facility] 09/28/2021 11:35:39 Hib-Hep B 2 completed Callie Gage APN [address] [place] [address], [phone], [facility] 09/28/2021 11:35:39 pneumococcal, unspecified formulation 2 completed Callie Gage APN [address] [place] [address], [phone], [facility] 09/28/2021 11:35:39 pneumococcal, unspecified formulation 2 completed Callie Gage APN [address] [place] [address], [phone], [facility] 09/28/2021 11:35:39 Meningococcal MCV4O 9 completed Callie Gage APN [address] [place] [address], [phone], [facility] 09/28/2021 11:35:39 Tdap 4 completed Not Available [facility] 09/16/2024 15:54:14 Past Encounters Encounter ID Performer Location Encounter Start Date Encounter Closed Date Diagnosis/Indication Diagnosis SNOMED-CT Code Diagnosis ICD10 Code Diagnosis Note [id number] Emeli Frausto APN Main Office [address] [place] [phone] 09/16/2024 15:52:06 09/16/2024 16:30:01 Contraception care management 674292111 Z30.9 Effectiven ess, correct use, advantages /disadvant [...] by Organization Details LastModified Time None Recorded Payers Encounter Date Sequence Insurance Name Policy Number Policy Buchanan Covered Member ID Buchanan Member ID Guarantor Name 09/16/2024 1 [facility]: ([place] [id number] Dread Bellamy [id number] Dread Bellamy Notes Date Note Type Note Provider Name and Address Organization Details Recorded Time 09/16/2024 text/html 09/16/24 Patient agrees to telehealth appt today to discuss control.Her period was late this month by about a week this month and now afraid she is going to end up on her period for her upcoming wedding and honey contreras. She is normally very regular. She is getting December 05. Denies any chance of . Her fiancee is doing chemotherapy which he was told could decrease his sperm count. Emeli Frausto, [address] [place], [address], [facility] 09/16/2024 16:29:30 OBGyn Episode No OBEpisode recorded.
--- OUTSIDE RECORDS SUMMARY | 2024-09-16 15:35 | XMS_ITS | Encounter Summary ---
Author Organization [facility] Address [address] [place] [address] Phone Care Team Providers Care Special Events Driver Name Role Phone Provider, Outside Primary Care Provider Unavaila ble Encounter Details Date Type Department Care Team (Late st Contact Info) Description 12/31/2019 Telephone [facility] [address] [place] [address] Gerry Lee MD [address] [place] [address] Social History Tobacco Use Types Packs/Day Years Used Date Smoking Tobacco: Never Assessed Comments Unknown Sex and Gender Information Value Date Recorded Sex Assigned at Not on file 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 If you had testing completed for symptoms, please maintain the following precautions as advised by the Center of Disease Control: Stay home for 24 hours after the resolution of fever without the use of fever-reducing medications and improvement in respiratory symptoms (Cough, shortness of breath, and sore throat). If test was completed for an exposure, monitor for symptoms and fever for 14 days from exposure date and if fever or symptoms develop contact your Primary Care Provider or consider re-testing (you will need an order by calling [phone] Option 1) If the test was completed for an upcoming procedure or test, continue to quarantine until scheduledarrival time. If you develop any COVID, please contact your provider's office as soon as possible. If you do not have symptoms, keep wearing a mask while out and practicing good hand hygiene and social distancing. If you are a [employer] employee with symptoms or an exposure, please call the hotline at [phone] 2 Thank you, [employer] [facility] documented in this encounter Plan of Treatment Not on file documented as of this encounter Visit Diagnoses Not on filedocumented in this encounter Care Teams Special Events Driver Relationship Specialty Start Date End Date Provider, Outside PCP - General 12/10/19 documented as of this encounter
== END 2024-09-16 14:08 | disposition home or self-care (01) ==
DX: Z30.019 Encounter for initial prescription of contraceptives, unspecified (principal)
CPT/HCPCS: 36415; 84702